=== PATIENT | female | born 1995 | race Caucasian/White ===

== ENCOUNTER 2025-06-20 17:09 | Outpatient (OUT) | payer OTHER, SELFPAY ==
--- OUTSIDE RECORDS SUMMARY | 2025-06-10 15:30 | XMS_ITS | Encounter Summary ---
Author Organization [facility] Address [address] [place] [address] Care Team Providers Care Surveyor Rod Helper Name Role Phone Unallocated, Noms Provider Primary Care Provi isai Encounter Details DateTypeDepartmentCare Team (Latest Contact Info)Saqupqdrnzv20/02/2025 3:30 PM ESTRoutine [facility] [address] [facility] [place] [address] Harini Malin DO [address] [place] [address] 28 weeks gestation of ([facility] Social History Tobacco UseTypesPacks/DayYears UsedDateSmoking Tobacco: NeverSmokeless Tobacco: NeverAlcohol UseStandard Drinks/WeekCommentsNot Currently0 (1 standard drink = 0.6 oz pure alcohol)Humiliation, Afraid, Rape, and Kick questionnaireAnswerDate RecordedWithin the last year, have you been afraid of your partner or ex-partner?No01/21/2025Within the last year, have you been humiliated or emotionally abused in other ways by your partner or ex-partner?No01/21/2025 Within the last year, have you been kicked, hit, slapped, or otherwise physically hurt by your partner or ex-partner?No01/21/2025Within the last year, have you been raped or forced to have any kind of sexual activity by your part ner or ex-partner?No01/21/2025Social Connection and Isolation PanelAnswerDate RecordedIn a typical week, how many times do you talk on the phone with family, friends, or neighbors?More than three times a week01/21/2025How often do you get together with friends or relatives?Three times a week01/21/2025How often do you attend zoroastrian or nondenominational services?More than 4 times per year01/21/2025Do you belong to any clubs or organizations such as zoroastrian groups, unions, fraternal or athletic groups, or school groups?Yes01/21/2025How often do you attend meetings of the clubs or organizations you belong to?More than 4 times per year01/21/2025 Are you , , , , never , or living with a partner?Jkxkrwo5201/21/2025UDIT-CAnswerDate RecordedQ1: How often do you have a drink containing alcohol?Monthly or less01/21/2025Q2: How many drinks containing alcohol do you have on a typical day when you are drinking?1 or Q3: How often do you have six or more drinks on one occasion?Never01/21/2025Overall Financial Resource Strain (CARDIA)AnswerDate RecordedHow hard is it for you to pay for the very basics like food, housing, medical care, and heating?Not hard at all01/21/2025PHQ-2AnswerDate RecordedPatient Health Questionnaire-2 Score0 01/21/2025[facility] [place] of Occupational Health - Occupational Stress QuestionnaireAnswerDate RecordedDo you feel stress - tense, restless, nervous, or anxious, or unable to sleep at night because yourmind is troubled all the time - these days?Only a gwclzb9001/21/2025Exercise Vital SignAnswerDate Recorded On average, how many days per week do you engage in moderate to strenuous exercise (like a brisk walk)?3 days01/21/2025On average, how many minutes do you engage in exercise at this level?60 min01/21/2025Hunger Vital SignAnswerDate RecordedWithin the past 12 months, you worried that your food would run out before you got the money to buymore.Never true01/21/2025Within the past 12 months, the food you bought just didn't last and you didn't have money to get more.Never true01/21/2025PRAPARE - TransportationAnswerDate RecordedIn the past 12 months, has lack of transportation kept you from medical appointments or from getting medications?No01/21/2025In the past 12 months, has lack of transportation kept you from meetings, work, or from getting things needed for daily living?No01/21/2025Housing Stability Vital SignAnswerDate RecordedIn the last 12 months, was there a time when you were not able to pay the mortgage or rent on time?No01/21/2025In the past 12 months, how many times have you moved where you were living?t any time in the past 12 months, were you homeless or living in a residential (including now)?No01/21/2025EducationAnswerDate RecordedWhat is the highest level of school you have completed or the highest degree you have received?Master's degree (e.g., MA, MS, Ramirez, MEd, PRINCIPAL SYSTEM SOFTWARE ENGINEER, [employer]) 01/21/2025Estimated Date of QulnfnzoGpixnzbsVqx03/23/2026ased on last menstrual period of 11/25/2024Sex and Gender InformationValueDate RecordedSex Assigned at BirthNot on fileLegal SynEnvker95/15/2023 7:25 PM EDTGender Identity Not on fileSexual OrientationNot on fileOccupationIndustryJob Start DateJob End DateTeachers and Instructors, All OtherNot on fileNot on fileNot on file documented as of this encounter Last Filed Vital Signs Vital SignReadingTime TakenCommentsBlood Pvyrobam646/7806/10/2025 3:42 PM EST Pulse--Temperature--Respiratory Rate--Oxygen Saturation--Inhaled Oxygen Concentration--Pjmdcp17.3 kg (210 lb)06/10/2025 3:42 PM ESTHeight--Body Mass Index31.9301/21/2025 7:56 AM EDTdocumented in this encounter Progress Notes * Harini Malin, DO - 06/10/2025 3:30 PM EST Kick count given to pt. Urine N/N. Pt Rt. Foot swelling. Notice more when standing long period of time. Wearing compression socks. Swelling is good today. documented in this encounter Plan of Treatment DateTypeDepartmentCare Team (Latest Contact Info)Mguqqxoeswd35/17/2025 2:15 PM ESTRoutine [facility] [place] [facility] [address] [place] [phone] Harini Malin, [address] [place] [address] 07/15/2025 2:45 PM ESTRoutine [facility] [place] [facility] [address] [place] [phone] Harini Malin, [address] [place] [address] 07/23/2025 1:15 PM ESTAncillary Procedure [facility] [place] [facility] [address] [place] [phone] 07/23/2025 2:15 PM ESTRoutine [facility] [place] [facility] [address] [place] [phone] Harini Malin, DO [address] [place] [address] documented as of this encounter Procedures Procedure NamePriorityDate/TimeAssociated DiagnosisCommentsPOCT URINALYSIS 4 SDEMJNEZVwlijrb39/02/2025 3:47 PM EST 28 weeks gestation of ([facility] documented in this encounter Results * POCT URINALYSIS 4 DIPSTICK (06/10/2025 3:47 PM EST)ComponentValueRef RangeTest MethodAnalysis TimePerformed AtPathologist SignatureGlucose, UANegative Negative - 1999(110) ++++ mg/dLProtein, UANegativeNegative - 1999(20) ++++ mg/dLSpecimen (Source)Anatomical Location / LateralityCollection Method / VolumeCollection TimeReceived SewwUqjrk35/02/2025 3:47 PM EST Narrative Authorizing ProviderResult TypeResult StatusKathleen E Rinmiles DOPOINT OF CARE TEST ENTER/EDIT ORDERABLESFinal Result documented in this encounter Visit Diagnoses Diagnosis 28 weeks gestation of ([facility]) 30 weeks gestation of ([facility]) documented in this encounter Care Teams Team MemberRelationshipSpecialtyStart DateEnd Date Unallocated, Noms MD [address] [place] [address] PCP - GeneralFamily Medicine01/21/25documented as of this encounter
--- OUTSIDE RECORDS SUMMARY | 2025-06-20 17:24 | XMS_ITS | Encounter Summary ---
Author Organization [facility] Address [address] [place] [address] Care Team Providers Care Manager Mobile Name Role Phone Unallocated, Noms Provider Primary Care Provi isai Encounter Details DateTypeDepartmentCare Team (Latest Contact Info)Ovjvgcvurio20/02/2025amboo flowsheet [facility] [address] [facility] [address] [place] [phone] Harini Malin DO [address] [facility] [address] [place] [address] Social History Tobacco UseTypesPacks/DayYears UsedDateSmoking Tobacco: NeverSmokeless [...] times a week01/21/2025How often do you attend tenriism or sabianist services?More than 4 times per year01/21/2025Do you belong to any clubs or organizations such as tenriism groups, unions, fraternal or athletic groups, or school groups?Yes01/21/2025How often do you attend meetings of the clubs or organizations you belong to?More than 4 times per year01/21/2025 Are you , , , , never , or living with a partner?Eakfnux0101/21/2025UDIT-CAnswerDate RecordedQ1: How often do you have a [...] hard at all01/21/2025PHQ-2AnswerDate RecordedPatient Health Questionnaire-2 Score0 01/21/2025[facility] [place] of Occupational Health - Occupational Stress QuestionnaireAnswerDate RecordedDo you feel stress - tense, restless, nervous, or anxious, or unable to sleep at night because yourmind is troubled all the time - these days?Only a liacfs3201/21/2025Exercise Vital SignAnswerDate Recorded On average, how many [...] were you homeless or living in a senior care (including now)?No01/21/2025EducationAnswerDate RecordedWhat is the highest level of school you have completed or the highest degree you have received?Master's degree (e.g., MA, MS, Ramirez, MEd, FORENSIC DOCUMENT EXAMINER, [employer]) 01/21/2025Estimated Date of BlvdmvkrKbewoktgUch79/23/2026Based on last menstrual period of 11/25/2024Sex and Gender InformationValueDate RecordedSex Assigned at BirthNot on fileLegal NnuEyfxaj20/15/2023 7:25 PM EDTGender Identity Not on fileSexual OrientationNot on fileOccupationIndustryJob Start DateJob End DateTeachers and Instructors, All OtherNot on fileNot on fileNot on file documented as of this encounter Plan of Treatment DateTypeDepartmentCare Team (Latest Contact Info)Czzwnvvtrmg51/17/2025 2:15 PM ESTRoutine [facility] [address] [place] [phone] Harini Malin, DO [address] [place], [place] [phone] 07/15/2025 2:45 PM ESTRoutine [facility] [place] [facility] [address] [place] [phone] Harini Malin, DO [address] [place] [address] 07/23/2025 1:15 PM ESTAncillary Procedure [facility] [address] [place] [phone] 07/23/2025 2:15 PM ESTRoutine [facility] [address] [place] [phone] Harini Malin DO [address] [place] [address] documented as of this encounter Visit Diagnoses Not on filedocumented in this encounter Care Teams Team MemberRelationshipSpecialtyStart DateEnd Date Unallocated, Noms MD [address] [place] [address] PCP - GeneralFamily Medicine01/21/25documented as of this encounter
--- OUTSIDE RECORDS SUMMARY | 2025-06-20 17:24 | XMS_ITS | Encounter Summary ---
Author Organization [facility] Address [address] [place] [address] Care Team Providers Care Component Engineer Name Role Phone Unallocated, Noms Provider Primary Care Provi isai Encounter Details DateTypeDepartmentCare Team (Latest Contact Info)Kreilhoayor94/02/2025Travel Social History Tobacco UseTypesPacks/DayYears UsedDateSmoking Tobacco: NeverSmokeless [...] times a week01/21/2025How often do you attend anglican or religion services?More than 4 times per year01/21/2025Do you belong to any clubs or organizations such as anglican groups, unions, fraternal or athletic groups, or school groups?Yes01/21/2025How often do you attend meetings of the clubs or organizations you belong to?More than 4 times per year01/21/2025 Are you , , , , never , or living with a partner?Hohrafh8801/21/2025UDIT-CAnswerDate RecordedQ1: How often do you have a [...] hard at all01/21/2025PHQ-2AnswerDate RecordedPatient Health Questionnaire-2 Score0 01/21/2025[facility] [place] of Occupational Health - Occupational Stress QuestionnaireAnswerDate RecordedDo you feel stress - tense, restless, nervous, or anxious, or unable to sleep at night because yourmind is troubled all the time - these days?Only a pytltx1701/21/2025Exercise Vital SignAnswerDate Recorded On average, how many [...] you homeless or living in a senior living (including now)?No01/21/2025EducationAnswerDate RecordedWhat is the highest level of school you have completed or the highest degree you have received?Master's degree (e.g., MA, MS, Ramirez, MEd, SUPERVISOR DETASSELING CREW, [employer]) 01/21/2025Estimated Date of CzbtolpuPsttvvueQui20/23/2026ased on last menstrual period of 11/25/2024Sex and Gender InformationValueDate RecordedSex Assigned at BirthNot on fileLegal MkhSoxpjs55/15/2023 7:25 PM EDTGender Identity Not on fileSexual OrientationNot on fileOccupationIndustryJob Start DateJob End DateTeachers and Instructors, All OtherNot on fileNot on fileNot on file documented as of this encounter Plan of Treatment DateTypeDepartmentCare Team (Latest Contact Info)Ziddobnckgw81/17/2025 2:15 PM ESTRoutine [facility] [place] [facility] [address] [place] [phone] Harini Malin, DO [address] [place] [address] 07/15/2025 2:45 PM ESTRoutine [facility] [place] [facility] [address] [place] [address] Harini Malin, DO [address] [place] [address] 07/23/2025 1:15 PM ESTAncillary Procedure [facility] [place] [facility] [address] [place] [phone] 07/23/2025 2:15 PM ESTRoutine JOE BONILLA [address] [place] [phone] Harini Malin DO [address] [place] [address] documented as of this encounter Visit Diagnoses Not on filedocumented in this encounter Care Teams Team MemberRelationshipSpecialtyStart DateEnd Date Unallocated, Joe Aguilar MD [address] [place] [address] PCP - GeneralFamily Medicine01/21/25documented as of this encounter
--- OUTSIDE RECORDS SUMMARY | 2025-06-20 17:24 | XMS_ITS | Clinical Summary ---
Author Organization [facility] Address [address] [place] [address] Care Team Providers Care Tree Trimming Supervisor Name Role Phone Unallocated, Noms Provider Primary Care Provi isai Allergies No known active allergies Medications MedicationSigDispense QuantityRefillsLast FilledStart DateEnd DateStatus MV & Min w/FA-DHA ( ADULT GUMMY/DHA/FA PO) Take 2 tablets by mouth Daily Ricki OTCActive ferrous sulfate 325 (65 Fe) MG tablet Take 325 mg by mouth in the morning. Take with meals.Active Encounters DateTypeDepartmentCare ZqngHhgmaldyupq05/12/2025Telephone [facility] [place] [facility] [address] [place] [phone] Harini Malin, DO 06/10/2025 3:30 PM ESTRoutine [facility] [place] [facility] [address] [place] [phone] Harini Malin, DO 28 weeks gestation of ([facility])06/10/2025amboo flowsheet [facility] [place] [facility] [address] [place] [phone] Harini Malin, DO 06/10/20256095Uvzosi75/26/2025Orders Only [facility] External Department Unsolicited Harini Malin, DO 05/13/2025 3:45 PM ESTRoutine [facility] [place] [facility] [address] [place] [phone] Harini Malin, DO 24 weeks gestation of ([facility]); Screening for diabetes mellitus (DM)05/13/2025amboo flowsheet [facility] [address] [place] [address] Harini Malin, DO 05/13/20254106Jqbjye70/21/2025Telephone [facility] [address] [place] [address] Heavenly Patrick LPN 04/15/2025 3:00 PM EDTRoutine [facility] [address] [place] [address] Harini Malin, DO 20 weeks gestation of ([facility])04/15/2025 2:45 PM EDTAncillary Procedure [facility] [address] [place] [address] related condition in second trimester ([facility])04/15/2025Travelfrom Last 3 Months Family History RelationNameStatusCommentsFatherAliveMotherAlive Social History Tobacco UseTypesPacks/DayYears UsedDateSmoking Tobacco: NeverSmokeless Tobacco: Never Tobacco Cessation:Counseling Given: No Alcohol UseStandard Drinks/WeekCommentsNot Currently0 (1 standard drink = 0.6 oz pure alcohol)Humiliation, Afraid, Rape, and Kick questionnaireAnswerDate RecordedWithin the last year, have you been afraid of your partner or ex-partner?01/21/2025Within the last year, have you been humiliated or emotionally abused in other ways by your partner or ex-partner?01/21/2025 Within the last year, have you been kicked, hit, slapped, or otherwise physically hurt by your partner or ex-partner?01/21/2025Within the last year, have you been raped or forced to have any kind of sexual activity by your part ner or ex-partner?01/21/2025Social Connection and Isolation PanelAnswerDate RecordedIn a typical week, how many times do you talk on the phone with family, friends, or neighbors?More than three times a week01/21/2025How often do you get together with friends or relatives?Three times a week01/21/2025How often do you attend episcopal or restoration services?More than 4 times per year01/21/2025Do you belong to any clubs or organizations such as episcopal groups, unions, fraternal or athletic groups, or school groups?Yes01/21/2025How often do you attend meetings of the clubs or organizations you belong to?More than 4 times per year01/21/2025 Are you , , , , never , or living with a partner?Vjtbyru6601/21/2025UDIT-CAnswerDate RecordedQ1: How often do you have a [...] hard at all01/21/2025PHQ-2AnswerDate RecordedPatient Health Questionnaire-2 Score0 01/21/2025[facility] [place] [facility] - Occupational Stress QuestionnaireAnswerDate RecordedDo you feel stress - tense, restless, nervous, or anxious, or unable to sleep at night because yourmind is troubled all the time - these days?Only a thyoei8501/21/2025Exercise Vital SignAnswerDate Recorded On average, how many [...] were you homeless or living in a fci (including now)?No01/21/2025EducationAnswerDate RecordedWhat is the highest level of school you have completed or the highest degree you have received?Master's degree (e.g., MA, MS, Ramirez, MEd, CAMPUS ADMINISTRATIVE ASSISTANT, VAZQUEZ) 01/21/2025Estimated Date of DamdwuqgXjvbwxotRrk27/23/2026ased on last menstrual period of 11/25/2024Sex and Gender InformationValueDate RecordedSex Assigned at BirthNot on fileLegal BanNcthbp48/15/2023 7:25 PM EDTGender Identity Not on fileSexual OrientationNot on fileOccupationIndustryJob Start DateJob End DateTeachers and Instructors, All OtherNot on fileNot on fileNot on file Last Filed Vital Signs Vital SignReadingTime TakenCommentsBlood Pwhzpjxu185/7806/10/2025 3:42 PM EST Pulse--Temperature--Respiratory Rate--Oxygen Saturation--Inhaled Oxygen Concentration--Qxqwpd47.3 kg (210 lb)06/10/2025 3:42 PM PDWXzgyzg092.7 cm (5' 8 )01/21/2025 7:56 AM EDTBody Mass Index31.9301/21/2025 7:56 AM EDT Plan of Treatment DateTypeDepartmentCare Team (Latest Contact Info)Xvwbxlpthxx75/17/2025 2:15 PM ESTRoutine [facility] [place] [facility] [address] [place] [phone] Harini Malin, DO [address] [place] [address] 07/15/2025 2:45 PM ESTRoutine [facility] [place] [facility] [address] [place] [phone] Harini Malin, DO [address] [place] [address] 07/23/2025 1:15 PM ESTAncillary Procedure [facility] [address] [place] [phone] 07/23/2025 2:15 PM ESTRoutine [facility] [place] [facility] [address] [place] [phone] Harini Malin, DO [address] [place] [address] Health MaintenanceDue DateLast DoneCommentsCOVID-19 Vaccine ( season) 2025Influenza Vaccine (#1)2025Pneumococcal Vaccine: Pediatrics (0 to 5 Years) and At-Risk Patients (6 to 64 Years)Aged OutNo longer eligible based on patient's age to complete this topic Procedures Procedure NamePriorityDate/TimeAssociated DiagnosisCommentsPOCT URINALYSIS 4 JNXEIDNZGhkpvha03/02/2025 3:47 PM EST 28 weeks gestation of ([facility]) GLUCOSE TOLERANCE, 1 TSSNCvenafs57/26/2025 9:46 AM EST HEMOGLOBIN AND HEMATOCRIT, XRZCNFccuicx13/26/2025 9:46 AM EST POCT URINALYSIS 4 FVSSEORTNvtthvf17/04/2025 4:01 PM EST 24 weeks gestation of ([facility]) POCT URINALYSIS 4 BMROWFRIJzxwtpy45/07/2025 3:38 PM EDT 20 weeks gestation of ([facility]) US OB 14+ WEEKS ANATOMY OSUWYcaidez97/07/2025 3:31 PM EDT related condition in second trimester ([facility]) from Last 3 Months Results * POCT URINALYSIS 4 DIPSTICK (06/10/2025 3:47 PM EST) Only the most recent of3 resultswithin the time period is included. ComponentValueRef RangeTest MethodAnalysis TimePerformed AtPathologist Signature Glucose, UANegativeNegative - 1999(110) ++++ mg/dLProtein, UANegativeNegative - 1999(20) ++++ mg/dLSpecimen (Source)Anatomical Location / LateralityCollection Method / VolumeCollection TimeReceived IlcbKauzy61/02/2025 3:47 PM EST Narrative Authorizing ProviderResult TypeResult StatusHarini Malin DOPOINT OF CARE TEST ENTER/EDIT ORDERABLESFinal Result * Hemoglobin and hematocrit, blood (06/04/2025 9:46 AM EST)ComponentValueRef RangeTest MethodAnalysis TimePerformed AtPathologist YpyydasvtPfd77.411.1 - 15.9 g/lCFLPOQYYVfd37.134.0 - 46.6 %[facility]ABCORPSpecimen (Source)Anatomical Location / LateralityCollection Method / VolumeCollection TimeReceived Time 06/04/2025 9:46 AM EST06/04/2025 Narrative [facility] - 06/05/2025 7:07 AM EST Performed at: 01 - [facility], [place], [place] [id number] Conveyor Loader: Elias Hughes PhD, Phone: ??[phone] Authorizing ProviderResult TypeResult Marc Malin DOLAB BLOOD ORDERABLESFinal ResultPerforming OrganizationAddressCity/State/ZIP CodePhone Number [facility] * Glucose tolerance, 1 hour (06/04/2025 9:46 AM EST)ComponentValueRef RangeTest MethodAnalysis TimePerformed AtPathologist SignatureGestational Diabetes Aonkzu17912 - 139 mg/dLLABCORPComment: According to ADA, a glucose threshold of >139 mg/dL after 50-gram load identifies approximately 80% of women with gestational diabetes mellitus, while the sensitivity is further increased to approximately 90% by a threshold of >129 mg/dL. Specimen (Source)Anatomical Location / LateralityCollection Method / Volume Collection TimeReceived Time06/04/2025 9:46 AM EST06/04/2025 Narrative [facility] - 06/05/2025 7:07 AM EST Performed at: - [facility] ??[id number] Conveyor Loader: Elias Hughes PhD, Phone: ??[phone] Authorizing ProviderResult TypeResult StatusKathleen E Rinmiles DOLAB BLOOD ORDERABLESFinal ResultPerforming OrganizationAddressCity/State/ZIP CodePhone Number [facility] * OB 14+ weeks anatomy scan (04/15/2025 3:31 PM EDT)Anatomical Region LateralityModalityBodyUltrasoundStudy GAStudy DateStudy EDDWorking DELMAR (Source)/ (Last Menstrual Period)Fetus A MeasurementsValue GA (days) HEART RATEBiparietal DiameterHead CircumferenceAbdominal CircumferenceFemur LengthAmniotic Fluid Index Quadrant 1Amniotic Fluid Index Quadrant 2Amniotic Fluid Index Quadrant 3Amniotic Fluid Index Quadrant 4 Amniotic Fluid IndexDeep Vertical PocketCEREBELLUMLATERAL VENTRICLECISTERNA MAGNANUCHAL FOLDFETAL NASAL BONETWIN DISCORDANCEUA SD RatioUA Resistance Index UA Pulsatility IndexMCA SD RatioMCA Resistance IndexMCA Pulsatility IndexFetal Ulna LengthFetal Humerus LengthFetal Tibia LengthComposite GASpecimen (Source) Anatomical Location / LateralityCollection Method / VolumeCollection Time Received Time Narrative 04/24/2025 12:40 PM EDT Table formatting from the original result was not included. Images from the original result were not included. ?? Obstetrics & Gynecology ? [address] ? [address] ? [address] ?[address], [facility] ? [place] [address] [place] [address] ? - - - - - - - - - - - - - - - - - - - - - - - - - - - - - - - - - - - - - - - - - - - - - - - - - - - - - - - - - - - - - - - - - - ?Second / Third Trimester Ultrasound Patient name: Qing Zamudio : 1995 (29 y.o.) Date of exam: 04/15/25 - - - - - - - - - - - - - - - - - - - - - - - - - - - - - - - Indication: anatomy survey Method: Transabdominal ultrasound examination View: Adequate - - - - - - - - - - - - - - - - - - - - - - - - - - - - - - - : Type of gestation: Chawla Number of fetuses: 1 - - - - - - - - - - - - - - - - - - - - - - - - - - - - - - - Assigned Dating based on LMP: Estimated Date of Delivery: 09/01/25 GA by DELMAR: 20w1d - - - - - - - - - - - - - - - - - - - - - - - - - - - - - - - Biometry: BPD ??HC AC FL EFW 71 % 48 % 60 % 41 % 58 % EFW: 0 lb 12 oz GA by biometry: 20w2d - - - - - - - - - - - - - - - - - - - - - - - - - - - - - - - General Evaluation: Cardiac activity: present FHR: 142 bpm movements: visualized Presentation: Cephalic Placenta: posterior Umbilical cord: 3 vessel cord, normal insertion Amniotic fluid: normal MVP: 4.9 cm - - - - - - - - - - - - - - - - - - - - - - - - - - - - - - - Anatomy: Head/Neck: Cranium: visualized Right lateral ventricle: visualized Left lateral ventricle: visualized Right choroid plexus: visualized Left choroid plexus: visualized Midline falx: visualized Cavum septi pellucidi: visualized Thalami: visualized Cerebellum: visualized Cisterna magna: visualized Orbits: visualized Nose/Lips: visualized Nasal bone: visualized Maxilla: visualized Mandible: visualized Profile: visualized Heart/Thorax: Situs: situs solitus (normal) Position: levocardia (normal) Cardiac axis: normal Cardiac size: normal (approx 1/3 of thoracic cavity) 4-chamber view: visualized LVOT: visualized RVOT: visualized 3-vessel view: visualized 5-dlxjsw-iovukgu: visualized Aortic arch: visualized Ductal arch: visualized Diaphragm: visualized Abdomen: Cord insertion: visualized Stomach: visualized Gallbladder: visualized Bowel: visualized Right kidney: visualized Left kidney: visualized Bladder: visualized Genitals: visualized Spine: Cervical spine: visualized Thoracic spine: visualized Lumbar spine: visualized Sacral spine: visualized Limbs: Arms: visualized Hands: visualized Legs: visualized Feet: visualized - - - - - - - - - - - - - - - - - - - - - - - - - - - - - - - - - - - - - - - - - - - - - - - - - - - - - - - - - - - - - - - - - - Impression: There is a single intrauterine visualized. biometry is consistent with the established dates. The anatomy is adequately visualized and appears normal. No anomalies are identified. No common markers for aneuploidy are identified. There is a normal amount of amniotic fluid. The cervix appears normal and measures 3.1 cm in length. *Please note that a normal ultrasound does not rule out anomalies* - - - - - - - - - - - - - - - - - - - - - - - - - - - - - - - - - - - - - - - - - - - - - - - - - - - - - - - - - - - - - - - - - - Ordering/Reading Provider: Harini Malin D.O. ??High Density Talc Coater Operator: Lesly Morgan RDMS Authorizing ProviderResult TypeResult StatusKatjuan c Malin DOIMG OB US PROCEDURESFinal Result from Last 3 Months Insurance Care Teams Team MemberRelationshipSpecialtyStart DateEnd Date Unallocated, Noms MD Jeff [address] [place] [address] PCP - GeneralFamily Medicine01/21/25
--- OUTSIDE RECORDS SUMMARY | 2025-06-20 17:24 | XMS_ITS | Clinical Summary ---
Author Organization [employer] Address [id number] [address] [place] [address] Care Team Providers Care Fuse Cup Expander Name Role Phone James Bolaños PATIENT EXPERIENCE COORDINATOR-MECHANICAL INTEGRITY ENGINEER Primary Care Provider [phone] Allergies No known active allergies Medications No known medications Active Problems ProblemNoted DateDiagnosed DateFH: breast cancer in first degree relative when <50 years old09/13/2022 Overview (09/13/2022): Mother dx'd age 43 yo Family History Medical HistoryRelationNameCommentsALSMaternal GrandmotherAsthmaMotherBreast cancerMotherPneumoniaPaternal GrandfatherBreast cancerPaternal Grandmotherunsure of ageAsthmaSisterJamieColon cancerNeg HxOvarian cancerNeg HxUterine cancerNeg HxRelationNameStatusCommentsBrother 1RyanAliveBrother 2JoeAliveBrother 3JJAlive FatherAliveMaternal GrandfatherAliveMaternal GrandmotherDeceasedMotherAlive Paternal GrandfatherDeceasedPaternal GrandmotherDeceasedSisterJamieAlive Social History Tobacco UseTypesPacks/DayYears UsedDateSmoking Tobacco: NeverSmokeless Tobacco: Never Tobacco Cessation:Counseling Given: Not Answered Alcohol UseStandard Drinks/WeekCommentsYes0 (1 standard drink = 0.6 oz pure alcohol)socialPHQ-2AnswerDate RecordedTotal Lclox5183ChildcareAnswerDate LyxsxzcnJgedmkcjdHgprmxn09/13/2019EmploymentAnswerDate RecordedEmploymentUnknown 06/13/2019Hunger ScreeningAnswerDate RecordedWithin the past 12 months we worried whether our food would run out before we got money to buy more.Never True12/19/2023Within the past 12 months the food we bought just didn't last and we didn't have money to get more.Never True12/19/2023urpose - LifeAnswerDate RecordedPurpose and direction in gttsCjyqavt43/11/2021CommentsUnknownSex and Gender InformationValueDate RecordedSex Assigned at BirthNot on fileLegal UnnMbufle39/19/2018 8:56 AM EDTGender IdentityNot on fileSexual OrientationNot on file Last Filed Vital Signs Vital SignReadingTime TakenCommentsBlood Hklvdnzq910/72012/19/2023 9:30 AM EDT Dadfx903202/03/2023 9:02 AM EDTTemperature--Respiratory Rfnv748002/03/2023 9:02 AM EDTOxygen Svqnsbyhrg13%02/03/2023 9:02 AM EDTInhaled Oxygen Concentration-- Xatgsh25.6 kg (179 lb 12.8 oz)12/19/2023 9:30 AM RUXUqbisa042 cm (5' 8.11 ) 12/19/2023 9:30 AM EDTBody Mass Index27.25012/19/2023 9:30 AM EDT Plan of Treatment Health MaintenanceDue DateLast DoneCommentsDTaP,Tdap and Td Vaccines (1 - Tdap) 11/18/2015Depression Zczwfcreu91/dult BMI Mngrfhawg09/11/2025 12/19/2023Tobacco Syhjgblyf26/05/2024Influenza Qymgqvh9503/10/2025Pap Smear8, 09/13/2022 Medical Devices Not on file Procedures Procedure NamePriorityDate/TimeAssociated DiagnosisCommentsPAP SMEARRoutine 09/13/2022 6:09 AM EST Screening for cervical cancer from Last 3 Months or Most Recently Relevant to Health Maintenance Results * Pap Smear (09/13/2022 6:09 AM EST)Specimen (Source)Anatomical Location / LateralityCollection Method / VolumeCollection TimeReceived Time09/13/2022 6:09 AM EST09/13/2022 6:10 AM EST Narrative [facility] - 09/14/2022 1:21 PM EST [facility] ? [address] [place] [address] ? [place] [address] ? Gynecologic Cytology Consultation ? Patient Name:QING ZAMUDIO:1995 (Age: 26)Gender:FTaken:09/13/2022Reported:09/14/2022hysician(s):Alice Thomas MD ([phone])Copy To: Rec. #:[id number]: #[id number] Final Cytologic Interpretation ThinPrep Pap Test (Cervical): Satisfactory for evaluation. A transformation zone component is present. NEGATIVE FOR INTRAEPITHELIAL LESION OR MALIGNANCY. ?? tm/09/14/2022 Interpretation performed at [facility], [address] [place] [address], License number: [id number]. Electronically Signed Out By ?[facility](ASCP) Date of Last Menstrual Period: ? 08/20/22 Other Clinical Conditions: Z12.4 Screening for malignant neoplasm of cervix Z11.3 Encntr screen for infections w sexl mode of transmiss Source of Specimen ??ThinPrep Pap Test (Cervical) ? Thin Prep Pap (PRESSURE DISPATCHER) Fee Code(s): ?? G0145 Authorizing ProviderResult TypeResult StatusAlice Thomas MDPATHOLOGY/CYTOLOGY ORDERABLESFinal ResultPerforming OrganizationAddressCity/State/ZIP CodePhone Number [facility] from Last 3 Months or Most Recently Relevant to Health Maintenance Insurance Care Teams Team MemberRelationshipSpecialtyStart DateEnd Date James Bolaños, PATIENT EXPERIENCE COORDINATOR-MECHANICAL INTEGRITY ENGINEER [address] [place] [address] PCP - GeneralNurse Practitioner02/03/23
--- OUTSIDE RECORDS SUMMARY | 2025-06-20 17:25 | XMS_ITS | Encounter Summary ---
Author Organization [facility] Address [address] [place] [address] Care Team Providers Care Chemical Preparer Name Role Phone Unallocated, Noms Provider Primary Care Provi isai Encounter Details DateTypeDepartmentCare Team (Latest Contact Info)Zbaymhcfpwh57/12/2025Telephone [facility] [address] [place] [phone] Harini Malin DO [address] [facility] [address] [place] [address] Social History Tobacco UseTypesPacks/DayYears UsedDateSmoking Tobacco: NeverSmokeless [...] times a week01/21/2025How often do you attend yazdanism or gnosticism services?More than 4 times per year01/21/2025Do you belong to any clubs or organizations such as yazdanism groups, unions, fraternal or athletic groups, or school groups?Yes01/21/2025How often do you attend meetings of the clubs or organizations you belong to?More than 4 times per year01/21/2025 Are you , , , , never , or living with a partner?Fibdfhv1301/21/2025UDIT-CAnswerDate RecordedQ1: How often do you have a [...] hard at all01/21/2025PHQ-2AnswerDate RecordedPatient Health Questionnaire-2 Score0 01/21/2025[facility] [place] [facility] Occup[facility] Health - Occupational Stress QuestionnaireAnswerDate RecordedDo you feel stress - tense, restless, nervous, or anxious, or unable to sleep at night because yourmind is troubled all the time - these days?Only a efkqzw2101/21/2025Exercise Vital SignAnswerDate Recorded On average, how many [...] or from getting things needed for daily living?01/21/2025Housing Stability Vital SignAnswerDate RecordedIn the last 12 months, was there a time when you were not able to pay the mortgage or rent on time?01/21/2025In the past 12 months, how many times have you moved where you were living?t any time in the past 12 months, were you homeless or living in a nursing home (including now)?No01/21/2025EducationAnswerDate RecordedWhat is the highest level of school you have completed or the highest degree you have received?Master's degree (e.g., MA, MS, Ramirez, MEd, TUBE INSPECTOR, VAZQUEZ) 01/21/2025Estimated Date of RlrewsczKnqvzpvuSli52/23/2026Based on last menstrual period of 11/25/2024Sex and Gender InformationValueDate RecordedSex Assigned at BirthNot on fileLegal ZsuBuugae63/15/2023 7:25 PM EDTGender Identity Not on fileSexual OrientationNot on fileOccupationIndustryJob Start DateJob End DateTeachers and Instructors, All OtherNot on fileNot on fileNot on file documented as of this encounter Miscellaneous Notes * Telephone Encounter - Iris Soto - 06/20/2025 3:27 PM EST Qing Zamudio is a 29 y.o. female pt 29 weeks called in because at work today at bout 12:40 the vision in her left eye was like looking through a kaleidescope, hard to focus, splotchy weird Pt said she did feel light headed during vision changes but still fully aware and oriented. This lasted about 30 minutes then pt felt better. Pt denied hx of high BP or migraines. This has never happened before. Pt requesting a call back from the condemnation engineer provider at [phone]. documented in this encounter Plan of Treatment DateTypeDepartmentCare Team (Latest Contact Info)Ofdyldxkqkd71/17/2025 2:15 PM ESTRoutine [facility] [place] [facility] [address] [place] [phone] Harini Malin, DO [address] [place] [address] 07/15/2025 2:45 PM ESTRoutine [facility] [place] [facility] [address] [place] [phone] Harini Malin, DO [address] [place] [address] 07/23/2025 1:15 PM ESTAncillary Procedure [facility] [place] [facility] [address] [place] [phone] 07/23/2025 2:15 PM ESTRoutine [facility] [place] [facility] [address] [place] [phone] Harini Malin, DO [address] [place] [address] documented as of this encounter Visit Diagnoses Not on filedocumented in this encounter Care Teams Team MemberRelationshipSpecialtyStart DateEnd Date Unallocated, Joe Aguilar MD [address] [place] [address] PCP - GeneralFamily Medicine01/21/25documented as of this encounter
[2025-06-20 17:41] VITALS: BP 112/65; PULSE 77
[2025-06-20 18:11] LABS: Glucose Urine UA NEGATIVE (NEGATIVE)
== END 2025-06-20 18:50 | disposition home or self-care (01) ==
LOC: FBCO 17:20 → FBC 17:22
PROVIDERS: Family Provider Pediatrics; Visit Provider Obstetrics & Gynecology
DX: O26.899 Other specified pregnancy related conditions, unspecified trimester (principal)
CPT/HCPCS: 81003